=== PATIENT | male | born 1975 | race Caucasian/White ===

== ENCOUNTER 2019-03-08 10:22 | Emergency (ER) | payer BC ==
[~2019-03-08] VITALS: Ht 170.2 cm; Wt 78.9 kg
[2019-03-08 10:30] VITALS: BP 133/90; Ht 170.2 cm; Wt 78.9 kg
== END 2019-03-08 11:45 | disposition home or self-care (01) ==
LOC: ED 10:22
DX: L97.811 Non-pressure chronic ulcer of other part of right lower leg limited to breakdown of skin (principal); L03.115 Cellulitis of right lower limb; J06.9 Acute upper respiratory infection, unspecified; V00.311A Fall from snowboard, initial encounter; Y93.23 Activity, snow (alpine) (downhill) skiing, snowboarding, sledding, tobogganing and snow tubing; Y92.89 Other specified places as the place of occurrence of the external cause; Y99.8 Other external cause status
CPT/HCPCS: 90715